=== PATIENT | male | born 2000 | race Caucasian/White ===

== ENCOUNTER → 2020-01-10 | Emergency (ER) | payer OTHER ==
[~2020-01-10] VITALS: Ht 180.3 cm; Wt 100.0 kg
[~2020-01-10] MED LIST: IBUPROFEN 600 MG TABLET PO ONE
[2020-01-10 19:27] VITALS: BP 121/80
== END | disposition home or self-care (01) ==
LOC: EMS 19:02
DX: S90.31XA Contusion of right foot, initial encounter (principal); F17.210 Nicotine dependence, cigarettes, uncomplicated; W01.0XXA Fall on same level from slipping, tripping and stumbling without subsequent striking against object, initial encounter; Y93.89 Activity, other specified; Y92.89 Other specified places as the place of occurrence of the external cause; Y99.8 Other external cause status

== ENCOUNTER 2020-09-09 19:44 | Emergency (ER) | payer OTHER ==
[~2020-09-09] VITALS: Ht 193 cm; Wt 131.8 kg
[2020-09-09 21:47] VITALS: BP 129/71
== END 2020-09-09 22:07 | disposition home or self-care (01) ==
LOC: EMS 19:59
DX: S62.141A Displaced fracture of body of hamate [unciform] bone, right wrist, initial encounter for closed fracture (principal); W19.XXXA Unspecified fall, initial encounter; Y93.89 Activity, other specified; Y92.89 Other specified places as the place of occurrence of the external cause; Y99.8 Other external cause status
CPT/HCPCS: 99284; 73110-TC; 73130-TC; Z7502

== ENCOUNTER 2020-09-12 19:29 | Emergency (ER) | payer OTHER ==
[~2020-09-12] VITALS: Ht 193 cm; Wt 113.6 kg
[2020-09-12 20:51] VITALS: BP 132/80
== END 2020-09-12 21:19 | disposition home or self-care (01) ==
LOC: EMS 19:34
DX: S62.141A Displaced fracture of body of hamate [unciform] bone, right wrist, initial encounter for closed fracture (principal); X58.XXXA Exposure to other specified factors, initial encounter; Y93.89 Activity, other specified; Y92.89 Other specified places as the place of occurrence of the external cause; Y99.8 Other external cause status
CPT/HCPCS: 99283